=== PATIENT | male | born 1955 | race Hispanic/Latino ===

== ENCOUNTER 2023-03-31 00:03 | Emergency (ER) | payer SELFPAY ==
[~2023-03-31] VITALS: Ht 170.2 cm; Wt 68.1 kg
[~2023-03-31 00:03] MED LIST: LORTAB 1010 MG PO
[2023-03-31 00:07] VITALS: BP 127/82
[2023-03-31 00:30] VITALS: BP 144/92
[2023-03-31 00:57] LABS: BASO% 0.5 % (0-3); HEMATOCRIT 31.1 % (39.0-50.0); HEMOGLOBIN 10.6 g/dl (14.0-18.0); IMMATURE GRANULOCYTES 0.2 % (0.0-5.0); LYMPH% 30.3 % (15-41); MEAN CELL VOLUME 103.3 fL CALC (80.0-100.0); MEAN CORPUSCULAR HGB 35.2 pG CALC (26.0-32.0); MEAN CORPUSCULAR HGB CONC 34.1 g/dL CAL (32.0-36.0); MONO% 10.2 % (2-13); NEUT# 3.21 thou/uL (1.82-7.42); NEUT% 53.8 % (42-76); RED BLOOD COUNT 3.01 mill/uL (4.70-6.10); RED CELL DISTRI WIDTH 11.7 % (11.5-15.5)
[2023-03-31 01:01] VITALS: BP 115/94
[2023-03-31 01:08] LABS: ALBUMIN 3.8 g/dL (3.2-5.0); ALKALINE PHOSPHATASE 138 u/l (38-126); ANION GAP 14 (6-22 (CALC)); BILIRUBIN, TOTAL 1.6 mg/dL (0.2-1.3); BUN 25 mg/dL (8-23); BUN/CREATININE RATIO 26 (12-20 (CALC)); CARBON DIOXIDE 19 mmol/l (22-30); CHLORIDE 105 mmol/l (95-108); GFR FOR AFR.AMER. > 60 ML/MIN (>=60 (CALC)); GFR OTHER RACES > 60 ML/MIN (>=60 (CALC)); INTERNATIONAL NORMALIZED RATIO 1.1 RATIO (0.7-1.3); SGOT/AST 94 u/l (19-48); SODIUM 134 mmol/l (137-146); TOTAL PROTEIN 7.2 g/dL (6.3-8.2)
[2023-03-31 01:30] VITALS: BP 144/90
[2023-03-31 01:56] VITALS: BP 144/90
[2023-03-31] MEDS ORDERED: ULTRAM50 MG PO (02:02)
== END 2023-03-31 03:37 | disposition home or self-care (01) | DRG 151 ==
LOC: ED 00:03
PROVIDERS: Emergency Medicine
PROC: 2Y41X5Z Packing of Nasal Region using Packing Material (ICD-10-PCS; principal; 2023-03-31)
DX: R04.0 Epistaxis (principal); F17.200 Nicotine dependence, unspecified, uncomplicated

== ENCOUNTER 2023-04-01 09:18 | Emergency (ER) | payer SELFPAY ==
[~2023-04-01] VITALS: Ht 170.2 cm; Wt 66.0 kg
[~2023-04-01 09:18] MED LIST changes: +ULTRAM50 MG PO
[2023-04-01 10:12] VITALS: BP 152/85
== END 2023-04-01 11:23 | disposition home or self-care (01) | DRG 951 ==
LOC: ED 09:18
DX: Z48.00 Encounter for change or removal of nonsurgical wound dressing (principal); R04.0 Epistaxis

== ENCOUNTER 2023-11-01 09:44 | Inpatient (IN) | payer MEDICARE ==
[2023-11-01] VITALS (24 sets, daily range): BP systolic 92–135; BP diastolic 47–105
[~2023-11-01] VITALS: Ht 165.1 cm; Wt 75.0 kg
[2023-11-01 10:34] LABS: BASO% 0.6 % (0-3); EOS% 0.6 % (0-8); HEMATOCRIT 33.3 % (39.0-50.0); HEMOGLOBIN 11.1 g/dl (14.0-18.0); IMMATURE GRANULOCYTES 0.2 % (0.0-5.0); MEAN CELL VOLUME 90.2 fL CALC (80.0-100.0); MEAN CORPUSCULAR HGB 30.1 pG CALC (26.0-32.0); MEAN CORPUSCULAR HGB CONC 33.3 g/dL CAL (32.0-36.0); MONO% 10.3 % (2-13); NEUT# 3.66 thou/uL (1.82-7.42); NEUT% 71.3 % (42-76); RED BLOOD COUNT 3.69 mill/uL (4.70-6.10); RED CELL DISTRI WIDTH 16.1 % (11.5-15.5)
[2023-11-01] MEDS ORDERED: SODIUM CHLORIDE 0.9% 500 ML IV ONE ×3 (10:35→12:50)
[2023-11-01] MEDS ORDERED: amioDARONE HCl 450 MG in SODIUM CHLORIDE 250 ML IV ONE (10:35)
[2023-11-01 10:36] LABS: GFR FOR AFR.AMER. > 60 ML/MIN (>=60 (CALC)); GFR OTHER RACES 55 ML/MIN (>=60 (CALC))
[2023-11-01 11:01] LABS: ALBUMIN 3.5 g/dL (3.2-5.0); ALKALINE PHOSPHATASE 150 u/l (38-126); ANION GAP 13 (6-22 (CALC)); BILIRUBIN, TOTAL 1.5 mg/dL (0.2-1.3); BUN 11 mg/dL (8-23); BUN/CREATININE RATIO 10 (12-20 (CALC)); CARBON DIOXIDE 19 mmol/l (22-30); CHLORIDE 100 mmol/l (95-108); CREATININE 1.2 mg/dL (0.7-1.3); GFR FOR AFR.AMER. > 60 ML/MIN (>=60 (CALC)); GFR OTHER RACES 60 ML/MIN (>=60 (CALC)); MAGNESIUM 2.1 mg/dL (1.6-2.3); POTASSIUM 4.8 mmol/l (3.5-5.1); SGOT/AST 49 u/l (19-48); TOTAL PROTEIN 7.2 g/dL (6.3-8.2)
[2023-11-01 11:02] LABS: SODIUM 127 mmol/l (137-146)
[2023-11-01] MEDS ORDERED: cefTRIAXone SODIUM 2 GM in SODIUM CHLORIDE 0.9% 100 ML IV ONE (11:20)
[2023-11-01] MEDS ORDERED: AZITHROMYCIN 500 MG in SODIUM CHLORIDE 0.9% 250 ML IV ONE (11:25)
[2023-11-01 11:37] LABS: TSH, 3RD GENERATION 2.72 uIU/mL (0.47 - 4.68)
[2023-11-01] MEDS ORDERED: MAGNESIUM HYDROXIDE 30 ML UDC PO PRN (12:40)
[2023-11-01] MEDS ORDERED: ACETAMINOPHEN 325 MG/TAB PO PRN (12:40)
[2023-11-01] MEDS ORDERED: LORazepam 2 MG/ML IV PRN (12:50)
[2023-11-01] MEDS ORDERED: LORazepam 2 MG/ML IM PRN (12:50)
[2023-11-01] MEDS ORDERED: amioDARONE HCl 450 MG in SODIUM CHLORIDE 250 ML IV PRN ×2 (12:50→20:50)
[2023-11-01] MEDS ORDERED: chlordiazePOXIDE HCL 25 MG CAP PO PRN (12:50)
[2023-11-01] MEDS ORDERED: methylPREDNISolone Sod Succ 40 MG/ML SDV IV SCH (13:30)
[2023-11-01] MEDS ORDERED: APIXABAN BASE 5 MG TAB PO SCH (13:30)
[2023-11-01] MEDS ORDERED: SODIUM CHLORIDE 0.9% 1,000 ML IV PRN (13:30)
[2023-11-01] MEDS ORDERED: MIDAZOLAM HCL 2 MG/2 ML VIAL IV PRN (14:15)
[2023-11-01] MEDS ORDERED: MIDAZOLAM HCL 2 MG/2 ML VIAL IM PRN (14:15)
[2023-11-01] MEDS ORDERED: LEVALBUTEROL HCL 1.25 MG/3 ML VIAL NEB SCH (15:00)
[2023-11-01] MEDS ORDERED: IPRATROPIUM BROMIDE 0.5 MG/2.5 ML SOL IN SCH (15:00)
[2023-11-01] MEDS ORDERED: SODIUM CHLORIDE 0.9% 1,000 ML IV SCH (19:55)
[2023-11-01] MEDS ORDERED: VANCOMYCIN HCL 1 GM in SODIUM CHLORIDE 0.9% 250 ML IV SCH (21:00)
[2023-11-01] MEDS ORDERED: SODIUM CHLORIDE 0.9% 250 ML IV ONE (21:10)
[2023-11-01] MEDS ORDERED: VANCOMYCIN HCL 1 GM/VIAL IV ONE (21:10)
[2023-11-02] VITALS (40 sets, daily range): BP systolic 100–156; BP diastolic 60–111
[2023-11-02 07:07] LABS: BASO% 0.2 % (0-3); HEMATOCRIT 32.9 % (39.0-50.0); HEMOGLOBIN 10.9 g/dl (14.0-18.0); IMMATURE GRANULOCYTES 0.2 % (0.0-5.0); LYMPH% 7.6 % (15-41); MEAN CELL VOLUME 91.9 fL CALC (80.0-100.0); MEAN CORPUSCULAR HGB 30.4 pG CALC (26.0-32.0); MEAN CORPUSCULAR HGB CONC 33.1 g/dL CAL (32.0-36.0); MONO% 1.6 % (2-13); NEUT# 4.4 thou/uL (1.82-7.42); NEUT% 90.4 % (42-76); RED BLOOD COUNT 3.58 mill/uL (4.70-6.10); RED CELL DISTRI WIDTH 16.6 % (11.5-15.5)
[2023-11-02 07:24] LABS: ALBUMIN 2.8 g/dL (3.2-5.0); ALKALINE PHOSPHATASE 125 u/l (38-126); BUN 13 mg/dL (8-23); BUN/CREATININE RATIO 12 (12-20 (CALC)); CALCULATED LDLCHOLESTEROL 34 mg/dL (62-129 (CALC)); CHLORIDE 109 mmol/l (95-108); CHOLESTEROL HDL RATIO 2.1 (<4.4 (CALC)); CREATININE 1.2 mg/dL (0.7-1.3); GFR FOR AFR.AMER. > 60 ML/MIN (>=60 (CALC)); GFR OTHER RACES 60 ML/MIN (>=60 (CALC)); HDL CHOLESTEROL 40 mg/dL (39.0-59.0); MAGNESIUM 2.1 mg/dL (1.6-2.3); SGOT/AST 41 u/l (19-48); SODIUM 132 mmol/l (137-146); TOTAL CHOLESTEROL 82 mg/dl (0-199); TOTAL PROTEIN 6.1 g/dL (6.3-8.2); TOTAL TRIGLYCERIDES 42 mg/dl (0-149); VLDL CHOLESTROL 8 mg/dl (4-45 (CALC))
[2023-11-02 07:25] LABS: ANION GAP 13 (6-22 (CALC)); BILIRUBIN, TOTAL 0.8 mg/dL (0.2-1.3); CARBON DIOXIDE 15 mmol/l (22-30)
[2023-11-02] MEDS ORDERED: CEFEPIME HYDROCHLORIDE 1 GM in SODIUM CHLORIDE 0.9% 50 ML IV SCH (09:00)
[2023-11-02] MEDS ORDERED: MULTIPLE VITAMIN 10 ML,THIAMINE HCL 100 MG in DEXTROSE 5% / 0.9% NACL 1,000 ML IV SCH (09:00)
[2023-11-02] MEDS ORDERED: CEFEPIME HYDROCHLORIDE 2 GM in SODIUM CHLORIDE 0.9% 100 ML IV SCH (09:00)
[2023-11-02] MEDS ORDERED: VANCOMYCIN HCL 750 MG in SODIUM CHLORIDE 0.9% 235 ML IV SCH (10:00)
[2023-11-02] MEDS ORDERED: FUROSEMIDE 40 MG/4 ML SDV IV SCH (11:00)
[2023-11-02 11:49] LABS: URINE BILIRUBIN - DIPSTICK Negative (NEGATIVE); URINE BLOOD DIPSTICK Moderate (NEGATIVE); URINE GLUCOSE - DIPSTICK Negative (NEGATIVE); URINE KETONE Negative (NEGATIVE); URINE LEUK ESTERASE Negative (NEGATIVE); URINE NITRITE - DIPSTICK Negative (Negative); URINE PROTEIN - DIPSTICK Negative (NEG-TRACE); URINE SPECIFIC GRAVITY 1.015; URINE UROBILINOGEN - DIPSTICK 0.2 E.U./dL (0.2)
[2023-11-02 11:50] LABS: URINE COLOR Yellow
[2023-11-02 12:00] LABS: URINE RBC 0-2 RBC/hpf (0-5); URINE WBC 0-2 WBC/hpf (0-5)
[2023-11-02 12:01] LABS: URINE HYALINE CAST FEW lpf (NONE-RARE); URINE SQUAMOUS EPITHELIAL CELL FEW EPI/hpf (0-FEW)
[2023-11-02] MEDS ORDERED: DOXYCYCLINE HYCLATE 100 MG in SODIUM CHLORIDE 0.9% 100 ML IV SCH (12:30)
[2023-11-02] MEDS ORDERED: AZITHROMYCIN 500 MG in SODIUM CHLORIDE 0.9% 250 ML IV SCH (12:30)
[2023-11-02] MEDS ORDERED: LISINOPRIL 2.5 MG TAB PO SCH (16:46)
[2023-11-02] MEDS ORDERED: DIGOXIN 0.5 MG/2 ML AMP IV SCH (18:00)
[2023-11-02] MEDS ORDERED: APIXABAN BASE 5 MG TAB PO SCH (21:00)
[2023-11-02] MEDS ORDERED: METOPROLOL SUCCINATE 25 MG/TAB-TOPROL XL PO SCH (21:00)
[2023-11-02] MEDS ORDERED: Cefdinir 300 MG/CAP PO SCH (21:00)
[2023-11-03] VITALS (24 sets, daily range): BP systolic 59–177; BP diastolic 32–106
[2023-11-03 05:06] LABS: BASO% 0.1 % (0-3); HEMATOCRIT 31.4 % (39.0-50.0); HEMOGLOBIN 10.3 g/dl (14.0-18.0); IMMATURE GRANULOCYTES 0.2 % (0.0-5.0); LYMPH% 10.2 % (15-41); MEAN CELL VOLUME 93.5 fL CALC (80.0-100.0); MEAN CORPUSCULAR HGB 30.7 pG CALC (26.0-32.0); MEAN CORPUSCULAR HGB CONC 32.8 g/dL CAL (32.0-36.0); MONO% 7.3 % (2-13); NEUT# 7.78 thou/uL (1.82-7.42); NEUT% 82.2 % (42-76); RED BLOOD COUNT 3.36 mill/uL (4.70-6.10); RED CELL DISTRI WIDTH 16.8 % (11.5-15.5)
[2023-11-03 05:33] LABS: ALBUMIN 2.9 g/dL (3.2-5.0); ALKALINE PHOSPHATASE 115 u/l (38-126); ANION GAP 10 (6-22 (CALC)); BILIRUBIN, TOTAL 0.6 mg/dL (0.2-1.3); BUN 19 mg/dL (8-23); BUN/CREATININE RATIO 16 (12-20 (CALC)); CARBON DIOXIDE 18 mmol/l (22-30); CHLORIDE 112 mmol/l (95-108); CREATININE 1.2 mg/dL (0.7-1.3); GFR FOR AFR.AMER. > 60 ML/MIN (>=60 (CALC)); GFR OTHER RACES 60 ML/MIN (>=60 (CALC)); MAGNESIUM 2.3 mg/dL (1.6-2.3); POTASSIUM 4.3 mmol/l (3.5-5.1); SGOT/AST 41 u/l (19-48); SODIUM 136 mmol/l (137-146); TOTAL PROTEIN 6.1 g/dL (6.3-8.2)
[2023-11-03] MEDS ORDERED: AZITHROMYCIN 250 MG/TAB PO SCH (09:00)
[2023-11-04] VITALS (9 sets, daily range): BP systolic 117–150; BP diastolic 58–90
[2023-11-04 05:40] LABS: BASO% 0.3 % (0-3); EOS% 0.6 % (0-8); HEMATOCRIT 33.2 % (39.0-50.0); HEMOGLOBIN 10.8 g/dl (14.0-18.0); IMMATURE GRANULOCYTES 0.1 % (0.0-5.0); LYMPH% 18.3 % (15-41); MEAN CORPUSCULAR HGB 30.3 pG CALC (26.0-32.0); MEAN CORPUSCULAR HGB CONC 32.5 g/dL CAL (32.0-36.0); MONO% 9.3 % (2-13); NEUT# 5.17 thou/uL (1.82-7.42); NEUT% 71.4 % (42-76); RED BLOOD COUNT 3.57 mill/uL (4.70-6.10)
[2023-11-04 05:50] LABS: ALBUMIN 2.6 g/dL (3.2-5.0); ALKALINE PHOSPHATASE 109 u/l (38-126); ANION GAP 9 (6-22 (CALC)); BILIRUBIN, TOTAL 0.8 mg/dL (0.2-1.3); BUN 20 mg/dL (8-23); BUN/CREATININE RATIO 17 (12-20 (CALC)); CHLORIDE 110 mmol/l (95-108); CREATININE 1.2 mg/dL (0.7-1.3); GFR FOR AFR.AMER. > 60 ML/MIN (>=60 (CALC)); GFR OTHER RACES 60 ML/MIN (>=60 (CALC)); MAGNESIUM 2.1 mg/dL (1.6-2.3); POTASSIUM 4.1 mmol/l (3.5-5.1); SGOT/AST 44 u/l (19-48); SODIUM 137 mmol/l (137-146); TOTAL PROTEIN 5.6 g/dL (6.3-8.2)
[2023-11-04 05:51] LABS: CARBON DIOXIDE 22 mmol/l (22-30)
[2023-11-04] MEDS ORDERED: DIGOXIN 0.125 MG/TAB PO SCH (09:00)
[2023-11-04] MEDS ORDERED: LISINOPRIL2.5 MG PO (10:21)
[2023-11-04] MEDS ORDERED: ELIQUIS5 MG PO (10:21)
[2023-11-04] MEDS ORDERED: TOPROL XL50 MG PO (10:21)
[2023-11-04] MEDS ORDERED: CEFDINIR300 MG PO (10:21)
[2023-11-04] MEDS ORDERED: LASIX 40 MG TAB40 MG PO (10:21)
[2023-11-04] MEDS ORDERED: METOPROLOL SUCCINATE 50 MG/TAB PO SCH (21:00)
== END 2023-11-04 10:46 | disposition home or self-care (01) | DRG 291 ==
LOC: ED 09:44 → ED-I 10:27 → ED 12:04 → ICU 12:05
PROVIDERS: Family Medicine; ADMIT Student in an Organized Health Care Education/Training Program; ATTEND Student in an Organized Health Care Education/Training Program
PROC: 0W993ZZ Drainage of Right Pleural Cavity, Percutaneous Approach (ICD-10-PCS; principal; 2023-11-01)
DX: I13.0 Hypertensive heart and chronic kidney disease with heart failure and stage 1 through stage 4 chronic kidney disease, or unspecified chronic kidney disease (principal); I50.41 Acute combined systolic (congestive) and diastolic (congestive) heart failure; J18.9 Pneumonia, unspecified organism; E87.1 Hypo-osmolality and hyponatremia; J44.0 Chronic obstructive pulmonary disease with (acute) lower respiratory infection; J44.1 Chronic obstructive pulmonary disease with (acute) exacerbation; J91.8 Pleural effusion in other conditions classified elsewhere; I48.92 Unspecified atrial flutter; N18.9 Chronic kidney disease, unspecified; F10.10 Alcohol abuse, uncomplicated; I08.1 Rheumatic disorders of both mitral and tricuspid valves; I44.7 Left bundle-branch block, unspecified; F17.200 Nicotine dependence, unspecified, uncomplicated; Z20.822 Contact with and (suspected) exposure to COVID-19
CPT/HCPCS: J0282; J0692; J1160; J3370; Q9967